=== PATIENT | female | born 1955 | race Caucasian/White ===

== ENCOUNTER → 2018-02-11 | Outpatient (CLI) | payer OTHER | LOC: FIMAGING 15:38 | DX: Z12.31 Encounter for screening mammogram for malignant neoplasm of breast (principal) ==

== ENCOUNTER → 2018-10-06 | Outpatient (CLI) | payer OTHER | LOC: FIMAGING 09:57 | PROVIDERS: ATTEND Physician Assistant | DX: M16.12 Unilateral primary osteoarthritis, left hip (principal) ==

== ENCOUNTER 2018-12-25 08:07 | Inpatient (IN) | payer OTHER ==
--- NOTE | 2018-12-25 06:26 | PDHPUP ---
History & Physical Update H&P update statement: This history and physical update is based on an assessment of the patient which was completed after admission or registration (within 24 hours), but prior to the surgery/procedure. H&P update: H&P reviewed & patient examined, no change in patient's condition since H&P completed
[~2018-12-25 08:07] MED LIST: TRANEXAMIC ACID 3,000 MG/50 ML BAG IRR ONE
[2018-12-25] MEDS ORDERED: DEXAMETHASONE 4 MG/ML VIAL IVP ONE (08:37)
[2018-12-25] MEDS ORDERED: ceFAZolin 2 GM/DEXTROSE 100 ML IV ONE (08:37)
[2018-12-25] MEDS ORDERED: FAMOTIDINE 20 MG TAB PO ONE (08:37)
[2018-12-25] MEDS ORDERED: TRANEXAMIC ACID 3,000 MG in NS (SYRINGE) 50 ML IRR ONE (08:39)
[2018-12-25] MEDS ORDERED: ROPIVACAINE 0.2% 80 MG, EPINEPHrine 0.2 MG, KETOROLAC TROMETHAMINE 30 MG in SYRINGE 0 ML IU ONE (08:39)
[2018-12-25] MEDS ORDERED: LR 1,000 ML IV ONE (09:16)
[2018-12-25] MEDS ORDERED: MIDAZOLAM 2 MG/2 ML VIAL ONE (09:58)
[2018-12-25] MEDS ORDERED: BUPIVACAINE/DEXTROSE 7.5MG/ML 2 ML SPINAL AMP SP ONE (09:58)
[2018-12-25] MEDS ORDERED: PROPOFOL/EMULSION 500 MG/50 ML BOTTLE IV ONE ×2 (09:59→10:59)
[2018-12-25] MEDS ORDERED: DEXAMETHASONE 4 MG/ML VIAL ONE (09:59)
[2018-12-25] MEDS ORDERED: MIDAZOLAM 2 MG/2 ML VIAL IVP ONE (10:02)
[2018-12-25] MEDS ORDERED: NALOXONE HCL 0.4 MG/ML INJ IVP PRN (10:05)
[2018-12-25] MEDS ORDERED: METOCLOPRAMIDE 10 MG/2 ML VIAL IVP PRN ×2 (10:05→11:50)
[2018-12-25] MEDS ORDERED: DIAZEPAM 5 MG/ML 1 ML SYR IVP PRN (10:05)
[2018-12-25] MEDS ORDERED: LR 500 ML IV PRN (10:05)
[2018-12-25] MEDS ORDERED: ONDANSETRON 4 MG/2 ML VIAL IVP PRN ×2 (10:05→11:50)
[2018-12-25] MEDS ORDERED: oxyCODONE IR 5 MG TAB PO PRN ×2 (10:05→11:50)
[2018-12-25] MEDS ORDERED: ACETAMINOPHEN 500 MG TAB PO PRN (10:05)
[2018-12-25] MEDS ORDERED: fentaNYL 100 MCG/2 ML INJ IVP PRN (10:05)
--- NOTE | 2018-12-25 10:05 | PDANEPAE ---
ANE Past Medical History - Cardiovascular History Hx Hypertension: No Hx Arrhythmias: No Hx Chest Pain: No Hx Coronary Artery / Peripheral Vascular Disease: No Hx CHF / Valvular Disease: No Hx Palpitations: No - Pulmonary History Hx COPD: No Hx Asthma/Reactive Airway Disease: No Hx Recent Upper Respiratory Infection: No Hx Oxygen in Use at Home: No Hx Sleep Apnea: No Sleep Apnea Screening Result - Last Documented: Negative - Neurologic History Hx Cerebrovascular Accident: No Hx Seizures: No Hx Dementia: No Neurologic History Comment: hx ocular migraines. lumbar spinal stenosis - Endocrine History Hx Diabetes: Yes Endocrine History Comment: Insulin resistant/pre-diabetic. hypothyroid - Renal History Hx Renal Disorders: No - Liver History Hx Hepatic Disorders: No - Neurological & Psychiatric Hx Hx Neurological and Psychiatric Disorders: No - Cancer History Hx Cancer: No - Congenital Disorder History Hx Congenital Disorders: No - GI History GERD: no Hx Gastrointestinal Disorders: No - Other Health History Other Health History: wears glasses. PCOS. osteoarthritis - Chronic Pain History Chronic Pain: Yes (left hips, spinal stenosis) - Surgical History Prior Surgeries: right CAMDEN 2016. knees scoped ANE Review of Systems Review of Systems: - Exercise capacity METS (RN): 4 METS ANE Patient History - Allergies Allergies/Adverse Reactions: nickel Allergy (Verified 12/07/18 16:14) Rash promethazine [From Phenergan] Allergy (Verified 12/07/18 16:14) family hx of anaphylaxis Sulfa (Sulfonamide Antibiotics) Allergy (Verified 11/30/18 11:08) Hives - Home Medications Home Medications: C/E/Zn/Cu/OM3/DHA/EPA/LUT/ZEAX [Preservision Areds 2 Softgel] 1 each PO DAILY [Last Taken 12/25/18] Cyanocobalamin [Vitamin B12 (*)] 1,000 mcg PO DAILY 11/30/18 [Last Taken ] Diclofenac Sodium [Voltaren 75 MG (*)] 75 mg PO BID 11/30/18 [Last Taken ] Levothyroxine [Synthroid 50 mcg (*)] 50 mcg PO DAILY06 11/30/18 [Last Taken ] [place]-3 Fatty Acids [Fish Oil 1000 mg (*)] 1,000 mg PO DAILY 11/30/18 [Last Taken 12/25/18] Spironolactone [Aldactone 25 MG (*)] 100 mg PO BID 11/30/18 [Last Taken 12/25/18 ] metFORMIN SR [Glucophage XR 500 mg (*)] 1,000 mg PO HS 11/30/18 [Last Taken ] metFORMIN SR [Glucophage XR 500 mg (*)] 500 mg PO DAILY 11/30/18 [Last Taken ] - NPO status NPO Status: no food or drink >8 hours NPO Since - Liquids (Date): 12/25/18 NPO Since - Liquids (Time): 06:45 NPO Since - Solids (Date): 12/24/18 NPO Since - Solids (Time): 20:00 - Anes Hx Anes Hx: no prior problems - Smoking Hx Smoking Status: Never smoked - Family Anes Hx Family Hx Anesthesia Complications: none ANE Labs/Vital Signs - Vital Signs Blood Pressure: 145/87 Heart Rate: 73 Respiratory Rate: 16 O2 Sat (%): 93 Height: 162.56 cm Weight: 81.647 kg ANE Physical Exam - Airway Neck exam: FROM Mallampati Score: Class 2 Mouth exam: normal dental/mouth exam - Pulmonary Pulmonary: no respiratory distress, no rales or rhonchi, clear to auscultation - Cardiovascular Cardiovascular: regular rate and rhythym, no murmur, rub, or gallop - ASA Status ASA Status: II ANE Anesthesia Plan Anesthesia Plan: spinal
[2018-12-25] MEDS ORDERED: LIDOCAINE 2% 5 ML SDV ONE (10:25)
[2018-12-25] MEDS ORDERED: PHENYLEPHRINE HCL 100 MCG/ML SYR ONE (11:01)
[2018-12-25] MEDS ORDERED: MAGNESIUM HYDROXIDE 30 ML UDCUP PO PRN (11:50)
[2018-12-25] MEDS ORDERED: diphenhydrAMINE 25 MG CAP PO PRN (11:50)
[2018-12-25] MEDS ORDERED: PROMETHAZINE HCL 25 MG/ML INJ IVP PRN (11:50)
[2018-12-25] MEDS ORDERED: TEMAZEPAM 15 MG CAP PO PRN (11:50)
[2018-12-25] MEDS ORDERED: ONDANSETRON DISINTEGRATING 4 MG TAB PO PRN (11:50)
[2018-12-25] MEDS ORDERED: CYCLOBENZAPRINE 10 MG TAB PO PRN (11:50)
[2018-12-25] MEDS ORDERED: POLYETHYLENE GLYCOL 3350 17 GM PKT PO PRN (11:50)
[2018-12-25] MEDS ORDERED: LACTULOSE 20 GM/30 ML UDCUP PO PRN (11:50)
[2018-12-25] MEDS ORDERED: BISACODYL 10 MG SUPP PR PRN (11:50)
[2018-12-25] MEDS ORDERED: DIPHENOXYLATE/ATROPINE LOMOTIL 1 TAB PO PRN (11:50)
--- NOTE | 2018-12-25 11:50 | POSTOPPROG ---
Post Op Note Date of Operation: 12/25/18 Surgeon: Kesha Dugan Manager Medical Device: nida dugan PA-C Anesthesiologist: dr. galindo Anesthesia: Spinal Pre-op Diagnosis: left hip OA Post-op Diagnosis: same Indication: left hip pain Procedure: LTHA ant approach Findings: severe hip OA Inf/Abcess present in the surg proc area at time of surgery?: No EBL: 100-500
[2018-12-25] MEDS ORDERED: D50W 25 GM/50 ML SYR IVP PRN (11:54)
--- NOTE | 2018-12-25 12:00 | POSTANESTH ---
Post Anesthetic Evaluation Cardiovascular Status: Normal, Stable, Similar to Pre-Op Cond Respiratory Status: Normal, Stable, Similar to Pre-op Cond. Level of Consciousness/Mental Status: Can Participate in Eval, Moderately Sleepy Pain Control: Adequate, Prn Tx Ordered Nausea/Vomiting Control: Adequate, Prn Tx Ordered Complications Possibly Related to Anesthesia: None Noted
[2018-12-25] MEDS: LR 1,000 ML IV SCH ×2 (13:47→17:08)
--- NOTE | 2018-12-25 14:04 | PDMN ---
Medical Necessity Medical necessity: Pt meets inpt criteria per MD order [place] [facility] [place] in[place] only list. 63 y/o w/severe L hip OA admitted for L CAMDEN, ant approach and post-op care.
[2018-12-25] MEDS: HYDROCODONE/APAP 5/325 TAB PO PRN ×2 (14:47→20:24)
[2018-12-25] MEDS: ceFAZolin 2 GM/DEXTROSE 100 ML IV SCH (17:50)
[2018-12-25] MEDS: INSULIN REGULAR HUMAN 100 UNIT/ML UNIT SC SCH ×2 (17:53→22:40)
[2018-12-25] MEDS: SENNOSIDES/DOCUSATE SODIUM TAB PO SCH (20:23)
[2018-12-25] MEDS: SPIRONOLACTONE 25 MG TAB PO SCH (20:23)
[2018-12-25] MEDS: ASPIRIN 81 MG CHEWABLE TAB PO SCH (20:24)
[2018-12-25] MEDS: FAMOTIDINE 20 MG TAB PO SCH (20:24)
[2018-12-25] MEDS ORDERED: metFORMIN SR 500 MG TAB PO SCH (21:00)
[2018-12-26] MEDS: HYDROCODONE/APAP 5/325 TAB PO PRN ×3 (00:22→13:15)
[2018-12-26] MEDS: ceFAZolin 2 GM/DEXTROSE 100 ML IV SCH (01:39)
[2018-12-26] MEDS ORDERED: LEVOTHYROXINE 50 MCG TAB PO SCH (06:00)
[2018-12-26] MEDS: SPIRONOLACTONE 25 MG TAB PO SCH (08:11)
[2018-12-26] MEDS: SENNOSIDES/DOCUSATE SODIUM TAB PO SCH (08:12)
[2018-12-26] MEDS: FAMOTIDINE 20 MG TAB PO SCH (08:13)
[2018-12-26] MEDS: ASPIRIN 81 MG CHEWABLE TAB PO SCH (08:13)
[2018-12-26] MEDS ORDERED: metFORMIN SR 500 MG TAB PO SCH (09:00)
[2018-12-26] MEDS: INSULIN REGULAR HUMAN 100 UNIT/ML UNIT SC SCH ×2 (09:17→12:40)
--- NOTE | 2018-12-26 11:04 | SOAPPROG ---
SOAP Progress Note Assessment/Plan: Assessment: Patient is doing well POD 1 s/p Pain management: pain is well controlled on oral pain meds. VTE ppx: recommend 81 mg aspirin morning and evening for 4 weeks, cont TASHI and SCDs Anemia: level is expected initially postop. Asymptomatic. Continue to monitor Pt. initially required straight cath but was later able to void without cath D/c planning:patient has done much better than anticipated. Patient is stable, BP stable, pain well controlled and patient is eager for discharge to home. May d/c to home today pending release from PT Plan: 12/26/18 11:02 Subjective: No nausea, vomiting, shortness of breath or CP. Pain well-controlled Objective: Vital Signs Temp Pulse Resp BP Pulse Ox 36.6 C 64 16 134/62 H 95 12/26/18 08:00 12/26/18 08:00 12/26/18 08:00 12/26/18 08:00 12/26/18 08:00 Laboratory Results 12/26/18 04:22 12/25/18 12/26/18 12/27/18 05:59 05:59 05:59 Intake Total 3450 200 Output Total 2100 900 Balance 1350 -700 LLE: incision dressing clean and dry, NVI, positive PF/DF ICD10 Worksheet Patient Problems: Problems Problem Status Onset Primary localized osteoarthritis of left hip Acute
[2018-12-26 11:59] VITALS: BP 128/59
--- NOTE | 2018-12-26 21:43 | GOP ---
DATE OF OPERATION: 12/25/2018 SURGEON: Rajeev Francisco MD ELECTRON MICROSCOPIST: Julienne Francisco PA-C. ANESTHESIA: Spinal. PREOPERATIVE DIAGNOSIS: Left hip DJD. POSTOPERATIVE DIAGNOSIS: Left hip DJD. PROCEDURE PERFORMED: Left total hip arthroplasty with x-ray. FINDINGS: ESTIMATED BLOOD LOSS: 200 cc. INDICATIONS: The patient has progressively worsening arthritis of the hip which has failed medical management. The patient understands the treatment options including continued non-operative care and has selected surgical intervention. The patient has decided to undergo total hip arthroplasty via the direct anterior approach, understanding the risks of the procedure including , but not limited to, neurovascular injury, infection, persistent pain, component wear and loosening, deep venous thrombosis, pulmonary embolism, limb length inequality, hip instability (including dislocation), and intra-operative fractures. DESCRIPTION OF PROCEDURE: After proper identification of the patient including verification and marking the surgical site, the patient was brought to the operating room and placed in the supine position. All bony prominences were well padded. Anesthesia was induced without complication and intravenous prophylactic antibiotics were administered prior to skin incision. The operative leg was placed in the Trumpf Arch table extension and the well leg in a Yellofin leg floyd. The patient was prepped and draped in the usual sterile fashion. The C-arm was draped for intra-operative fluoroscopy to check acetabular position, femoral component position including leg length and femoral offset. Attention was then drawn to surgical exposure of the hip. An incision was made with a #10 Bard Earle blade starting 3 cm lateral and 3 cm distal to the anterior superior iliac spine measuring 8-10 cm and coursing distally toward the greater trochanter. The skin and subcutaneous tissues were divided sharply down to the fascia jasiel. The fascia jasiel was incised in line with the skin incision exposing the underlying tensor fascia jasiel muscle. The muscle was bluntly elevated from the fascia and the first extracapsular Cobra retractor was placed laterally at the junction of the superior femoral neck and greater trochanter. The lateral femoral circumflex vessels were identified, cauterized , and divided with the Aquamantys bipolar cautery. The deep investing fascia of the TFL was divided to allow proper mobilization of the muscle preventing damage during the retraction. The reflected head of the rectus femoris muscle was elevated off the anterior hip capsule and a medial Cobra retractor was placed just proximal to the lesser trochanter. The anterior capsulotomy was made sharply from the superolateral acetabulum to the saddle junction of the superior femoral neck and greater trochanter, then coursing inferomedial towards the lesser trochanter. The retractors were then placed in the intracapsular position for femoral neck osteotomy. Corresponding to pre-operative templating, the osteotomy was made with the oscillating saw carefully protecting the greater trochanter and soft tissues. The femoral head was removed from the acetabulum with a corkscrew and confirmed to be severely arthritic with exposed bone, deformity and osteophytes. Similar findings were confirmed in the acetabulum. The Arch table extension was then placed in 40 degrees external rotation. Attention was then drawn to the acetabular preparation. After placement of the anterior and posterior Cobra retractors outside the labrum and intracapsular, the circumferential labrum was removed sharply. The foveal contents were then removed and hemostasis obtained with cautery. The first reamer selected was sized using the removed femoral head. Reaming began with medialization and then commenced in 2 mm increments at 45 degrees of abduction and 15 degrees of anteversion using fluoroscopic navigation. Reaming ceased 1 mm less than the definitive acetabular component and corresponded to the pre-operative templating. The final acetabular component was inserted using fluoroscopy to achieve proper orientation yielding excellent purchase and stability in the acetabulum. The final acetabular liner was then placed and its seating confirmed. Attention was then turned to the femur. The Arch table extension was placed in extension and adduction, delivering the osteotomized femoral neck into the wound. A 2-pronged femoral elevator was placed at the calcar and another at the tip of the greater trochanter. The posterolateral capsule was released with cautery allowing mobilization of the femur lateral and anterior for preparation. The external rotators were visualized and preserved. A curette and rongeur were used to open the starting point for broaching. Serial broaching started with the #0 broach and ended with the broach that exhibited excellent fit in the proximal femur. A change in pitch during mallet strikes was accompanied by the inability to advance the broach any further. The trial reduction was performed and fluoroscopic navigation was utilized to check limb length. Adjustments were made to equalize limb length accordingly. After the final trials were accepted they were removed and the wound was copiously lavaged. The femoral component was seated to the same depth as the final broach and the femoral head was impacted onto the clean trunnion. The hip was then reduced for the final time and once more fluoroscopy was used to check that limb length equality was achieved. The wound was irrigated and closed in layers, the fascia jasiel with 2-0 Quill, the subcutaneous tissue with 2-0 Quill, and the skin with Dermabond. Sterile dressings were applied. Final sharps and sponge counts were accurate. The patient was then transferred to a hospital bed and brought to the recovery room in stable condition. IMPLANTS: Accolade II size 3 at 127. Acetabular component a 50 mm Trident II. Liner is a Trident X3 32 mm. Head Biolox delta 32 mm minus 4. /[id number]/MODL MTDD
--- NOTE | 2018-12-29 10:21 | GDS ---
[f rep st] DISCHARGE SUMMARY ADMISSION DIAGNOSIS: Left hip osteoarthritis. DISCHARGE DIAGNOSIS: Left hip osteoarthritis. PROCEDURE: Left total hip arthroplasty. VTE PROPHYLAXIS: Recommend aspirin 81 mg twice daily for 4 weeks. BRIEF DESCRIPTION OF HOSPITAL STAY: Patient was admitted for an elective joint arthroplasty. The pa tient tolerated the procedure well and has passed physical therapy. The patient was given appropriat e antibiotic prophylaxis and venous thromboembolism prophylaxis. The patient's pain was well control led on oral pain medication, patient was holding down food, and had urinated. Decision was made to d ischarge the patient. The patient was given post-operative prescriptions pre-operatively. PLAN: To follow up with Dr. Francisco at [facility] on January 14 at 10:45. /[id number]/MODL
== END 2018-12-26 13:36 | disposition home or self-care (01) | DRG 470 ==
LOC: F3N 08:07
PROVIDERS: ADMIT Orthopaedic Surgery; ATTEND Orthopaedic Surgery
PROC: 0SRB04A Replacement of Left Hip Joint with Ceramic on Polyethylene Synthetic Substitute, Uncemented, Open Approach (ICD-10-PCS; principal; 2018-12-25 10:00)
DX: M16.12 Unilateral primary osteoarthritis, left hip (principal); M10.9 Gout, unspecified; R73.03 Prediabetes; E28.2 Polycystic ovarian syndrome; E78.5 Hyperlipidemia, unspecified; E03.9 Hypothyroidism, unspecified; Z96.641 Presence of right artificial hip joint
CPT/HCPCS: 97161-GP; J0171; J0690; J1100; J1815; J1885; J2250; J2370; J2704; J2795